=== PATIENT | male | born 1935 | race Caucasian/White ===

== ENCOUNTER 2018-02-18 10:07 | Day surgery (SDC) | payer OTHER, BC ==
[2018-02-12 12:28] VITALS: BMI 36.3
[2018-02-18 11:44] VITALS: TEMP 97.9
[2018-02-18 12:05] VITALS: BP 120/65; PULSE 78
--- NOTE | 2018-02-20 10:11 | PATH ---
Surgical Pathology Report Patient Name: SIDRA DONALD [facility]. Rec. #: [id number] /Age/Gender: 1935 (Age: 82) / M Account: [id number] Location: [facility] Taken: 02/18/2018 Received: 02/18/2018 Reported: 02/20/2018 Physicians: Jess Gilbert M.D. Specimen(s) Received ASCENDING COLON Clinical History History of polyps Postoperative diagnosis: Erythema, rule out colitis Final Diagnosis ASCENDING COLON, BIOPSY: COLONIC MUCOSA WITH SMALL LYMPHOID AGGREGATES, FOCAL VASCULAR CONGESTION, AND MELANOSIS COLI. Electronically Signed Jess Jaramillo M.D. Gross Description Received in formalin, labeled "ascending colon" are 2 de souza, irregular portions of soft tissue averaging 0.3 cm. in greatest dimension. The specimens are submitted in toto in one cassette. /02/19/201802/19/2018
== END 2018-02-18 12:15 | disposition home or self-care (01) ==
LOC: FASU-ENDO 10:07
PROVIDERS: ATTEND Internal Medicine Gastroenterology
PROC: 0DBK8ZX Excision of Ascending Colon, Via Natural or Artificial Opening Endoscopic, Diagnostic (ICD-10-PCS; principal; 2018-02-18 10:57)
DX: Z12.11 Encounter for screening for malignant neoplasm of colon (principal); K63.89 Other specified diseases of intestine; K59.00 Constipation, unspecified; K64.1 Second degree hemorrhoids
CPT/HCPCS: 82962; 88305-TC

== ENCOUNTER 2019-07-21 09:21 | Day surgery (SDC) | payer OTHER, BC ==
[2019-07-15 12:23] VITALS: BMI 35.9
[2019-07-21] MEDS ORDERED: LIDOCAINE HCL/PF 2% SDV 5ML VIAL ONE (10:37)
[2019-07-21] MEDS ORDERED: PROPOFOL 20 ML ONE ×3 (10:37)
[2019-07-21 11:58] VITALS: BP 110/71; PULSE 78; TEMP 98
--- NOTE | 2019-07-26 10:39 | PATH ---
Surgical Pathology Report Patient Name: SIDRA DONALD [facility]. Rec. #: [id number] /Age/Gender: 1935 (Age: 83) / M Account: [id number] Location: [facility] Taken: 07/21/2019 Received: 07/21/2019 Reported: 07/26/2019 Physicians: Jess Gilbert M.D. Specimen(s) Received BX POLYP ASCENDING COLON Clinical History The Screening Postoperative diagnosis: Diverticulosis, colon polyps, hemorrhoids Final Diagnosis ASCENDING COLON, POLYP, BIOPSY: TUBULAR ADENOMA. Electronically Signed Avelina Rogers M.D. Gross Description Received in formalin, labeled "biopsy polyp ascending colon" are 3 de souza, irregular portions of soft tissue ranging from 0.1-0.2 cm. in greatest dimension. The specimens are submitted in toto in one cassette. /07/22/2019 [facility]07/22/2019
== END 2019-07-21 12:14 | disposition home or self-care (01) ==
LOC: FASU-ENDO 09:21
PROVIDERS: ATTEND Internal Medicine Gastroenterology
PROC: 0DBK8ZX Excision of Ascending Colon, Via Natural or Artificial Opening Endoscopic, Diagnostic (ICD-10-PCS; principal; 2019-07-21 10:47)
DX: Z12.11 Encounter for screening for malignant neoplasm of colon (principal); D12.2 Benign neoplasm of ascending colon; K57.30 Diverticulosis of large intestine without perforation or abscess without bleeding; K64.3 Fourth degree hemorrhoids
CPT/HCPCS: 82962; 88305-TC

== ENCOUNTER 2020-08-04 14:08 | Inpatient (IN) | payer OTHER ==
[2020-08-04 16:07] LABS: BASO % 0.9 % (0-2.0); EOS % 1.3 % (0-4.5); HEMATOCRIT 37.4 % (35.4-49); HEMOGLOBIN 12.4 GM/dL (11.7-16.9); MCH 31.2 pg (25.7-33.7); MCHC 33.1 g/dl (32.0-35.9); MEAN CELL VOLUME 94.3 fl (80-96); MEAN PLT VOLUME 8.7 fl (7.5-11.1); MONO % 8.3 % (3.8-10.2); NEUT % 73.5 % (42.8-82.8); PLATELET COUNT 216 K/MM3 (134-434); RBC 3.97 M/mm3 (4.00-5.60); RDW 15.1 % (11.9-15.9); WHITE BLOOD COUNT 6.8 K/mm3 (4.0-10.0)
[2020-08-04 16:42] LABS: CHLORIDE 105 mmol/L (98-107); POTASSIUM 4.5 mmol/L (3.5-5.1); SODIUM 141 mmol/L (136-145)
[2020-08-04 16:44] LABS: CALCIUM 9.4 mg/dL (8.5-10.1)
[2020-08-04 16:45] LABS: ALBUMIN 3.9 g/dl (3.4-5.0); ANION GAP 5 MMOL/L (8-16); BLOOD UREA NITROGEN 11.9 mg/dL (7-18); CO2 30 mmol/L (21-32); GLUCOSE,RANDOM 89 mg/dL (74-106)
[2020-08-04 16:48] LABS: CREATININE 0.9 mg/dL (0.55-1.3); SGOT/AST 13 U/L (15-37); SGPT/ALT 18 U/L (13-61)
[2020-08-04 16:49] LABS: BILIRUBIN,TOTAL 0.4 mg/dL (0.2-1)
[2020-08-04 16:50] LABS: TOT PROT 6.8 g/dl (6.4-8.2)
[2020-08-04 16:51] LABS: ALK PHOS 65 U/L (45-117)
[2020-08-05] MEDS: INSULIN SLIDING SCALE (NOVOLOG) 1 VIAL SQ SCH ×5 (00:07→22:13)
[2020-08-05] MEDS: APIXABAN 5 MG TABLET PO SCH ×2 (00:31→09:41)
[2020-08-05] MEDS: ATORVASTATIN CA 10 MG TABLET (FP) PO SCH (00:31)
[2020-08-05 04:18] VITALS: BMI 35.6
[2020-08-05] MEDS: TAMSULOSIN HCL 0.4 MG CAP PO SCH (08:37)
[2020-08-05 08:50] LABS: BASO % 1.1 % (0-2.0); EOS % 1.4 % (0-4.5); HEMATOCRIT 35.2 % (35.4-49); LYMPH % 16.3 % (8-40); MCH 31.9 pg (25.7-33.7); MCHC 34.1 g/dl (32.0-35.9); MEAN CELL VOLUME 93.3 fl (80-96); MEAN PLT VOLUME 8.5 fl (7.5-11.1); MONO % 9.8 % (3.8-10.2); NEUT % 71.4 % (42.8-82.8); PLATELET COUNT 207 K/MM3 (134-434); RBC 3.77 M/mm3 (4.00-5.60); WHITE BLOOD COUNT 6.4 K/mm3 (4.0-10.0)
[2020-08-05 09:17] LABS: POTASSIUM 3.8 mmol/L (3.5-5.1)
[2020-08-05 09:22] LABS: ALBUMIN 3.6 g/dl (3.4-5.0); BLOOD UREA NITROGEN 10.8 mg/dL (7-18)
[2020-08-05 09:25] LABS: CREATININE 0.7 mg/dL (0.55-1.3)
[2020-08-05 09:26] LABS: BILIRUBIN,TOTAL 0.6 mg/dL (0.2-1); PHOSPHOROUS 4.2 mg/dL (2.5-4.9)
[2020-08-05 09:30] LABS: TOT PROT 6.2 g/dl (6.4-8.2)
[2020-08-05] MEDS ORDERED: PT OWN MED DRAWER 7, Y5N ONE ×2 (09:38→17:42)
[2020-08-05] MEDS: LISINOPRIL 20 MG TABLET PO SCH (09:40)
[2020-08-05] MEDS: HYDROCHLOROTHIAZIDE 25 MG TABLET (FP) PO SCH (09:40)
[2020-08-05] MEDS ORDERED: LORazepam 2 MG/ML SDV VIAL IM ONE ×2 (11:27→16:30)
[2020-08-05] MEDS: CITALOPRAM HYDROBROMIDE 20 MG TABLET PO SCH (12:27)
[2020-08-05] MEDS: LACTULOSE 20 GM/30 ML UDC (FOR ORAL USE ONLY) PO SCH (12:27)
[2020-08-05] MEDS ORDERED: LORazepam 2 MG/ML SDV VIAL IVPUSH PRN (17:07)
[2020-08-06] MEDS: LACTULOSE 20 GM/30 ML UDC (FOR ORAL USE ONLY) PO SCH ×3 (00:17→21:50)
[2020-08-06] MEDS: APIXABAN 5 MG TABLET PO SCH ×3 (00:17→21:50)
[2020-08-06] MEDS: PRIMIDONE 50 MG TABLET PO SCH ×2 (00:18→21:50)
[2020-08-06] MEDS: ATORVASTATIN CA 10 MG TABLET (FP) PO SCH ×2 (00:18→21:50)
[2020-08-06] MEDS: INSULIN SLIDING SCALE (NOVOLOG) 1 VIAL SQ SCH ×4 (07:38→21:54)
[2020-08-06 09:39] LABS: BASO % 0.6 % (0-2.0); EOS % 0.4 % (0-4.5); HEMATOCRIT 37.3 % (35.4-49); HEMOGLOBIN 12.9 GM/dL (11.7-16.9); LYMPH % 8.1 % (8-40); MCH 32.2 pg (25.7-33.7); MCHC 34.5 g/dl (32.0-35.9); MEAN CELL VOLUME 93.2 fl (80-96); MEAN PLT VOLUME 8.5 fl (7.5-11.1); MONO % 5.8 % (3.8-10.2); NEUT % 85.1 % (42.8-82.8); PLATELET COUNT 220 K/MM3 (134-434); RDW 15.3 % (11.9-15.9); WHITE BLOOD COUNT 9.6 K/mm3 (4.0-10.0)
[2020-08-06 09:56] LABS: POTASSIUM 3.7 mmol/L (3.5-5.1)
[2020-08-06] MEDS ORDERED: PT OWN MED DRAWER 7, Y5N ONE ×2 (09:56→21:43)
[2020-08-06 10:01] LABS: CALCIUM 8.9 mg/dL (8.5-10.1)
[2020-08-06 10:02] LABS: ALBUMIN 3.7 g/dl (3.4-5.0); BLOOD UREA NITROGEN 15.4 mg/dL (7-18); CREATININE 0.8 mg/dL (0.55-1.3)
[2020-08-06 10:04] LABS: BILIRUBIN,TOTAL 0.9 mg/dL (0.2-1); TOT PROT 6.5 g/dl (6.4-8.2)
[2020-08-06 10:24] LABS: SYPHILIS W/ RPR CONF NON-REACTIVE (NONREACTIVE)
[2020-08-06] MEDS: TAMSULOSIN HCL 0.4 MG CAP PO SCH (10:25)
[2020-08-06] MEDS: CITALOPRAM HYDROBROMIDE 20 MG TABLET PO SCH (10:25)
[2020-08-06] MEDS: HYDROCHLOROTHIAZIDE 25 MG TABLET (FP) PO SCH (10:25)
[2020-08-06] MEDS: LISINOPRIL 20 MG TABLET PO SCH (10:26)
[2020-08-06 10:52] LABS: HIV INTERPRETATION NEGATIVE (NEGATIVE)
[2020-08-06] MEDS: DEXTROSE 5%-0.45% SALINE 1,000 ML IV SCH (13:16)
[2020-08-06] MEDS ORDERED: ACETAMINOPHEN 1000 MG/100 ML VIAL (NON FORMULARY) IVPB PRN (15:02)
[2020-08-07] MEDS: DEXTROSE 5%-0.45% SALINE 1,000 ML IV SCH (02:03)
[2020-08-07] MEDS ORDERED: PT OWN MED DRAWER 7, Y5N ONE ×5 (02:25→21:49)
[2020-08-07] MEDS: INSULIN SLIDING SCALE (NOVOLOG) 1 VIAL SQ SCH ×4 (06:37→21:46)
[2020-08-07] MEDS: TAMSULOSIN HCL 0.4 MG CAP PO SCH (08:04)
[2020-08-07 09:47] LABS: BASO % 0.7 % (0-2.0); EOS % 0.8 % (0-4.5); HEMATOCRIT 35.6 % (35.4-49); HEMOGLOBIN 12.2 GM/dL (11.7-16.9); LYMPH % 9.5 % (8-40); MCH 32.1 pg (25.7-33.7); MCHC 34.4 g/dl (32.0-35.9); MEAN CELL VOLUME 93.5 fl (80-96); MONO % 6.6 % (3.8-10.2); NEUT % 82.4 % (42.8-82.8); PLATELET COUNT 193 K/MM3 (134-434); RDW 15.3 % (11.9-15.9); WHITE BLOOD COUNT 8.1 K/mm3 (4.0-10.0)
[2020-08-07 10:05] LABS: POTASSIUM 3.6 mmol/L (3.5-5.1)
[2020-08-07 10:10] LABS: ALBUMIN 3.4 g/dl (3.4-5.0); BLOOD UREA NITROGEN 15.5 mg/dL (7-18); CALCIUM 8.2 mg/dL (8.5-10.1)
[2020-08-07 10:13] LABS: CREATININE 0.7 mg/dL (0.55-1.3); PHOSPHOROUS 2.4 mg/dL (2.5-4.9)
[2020-08-07 10:14] LABS: BILIRUBIN,TOTAL 0.9 mg/dL (0.2-1); TOT PROT 6.1 g/dl (6.4-8.2)
[2020-08-07] MEDS ORDERED: POTASSIUM PHOSPHATE 15 MM in SODIUM CHLORIDE 250 ML IVPB ONE (10:21)
[2020-08-07] MEDS: LACTULOSE 20 GM/30 ML UDC (FOR ORAL USE ONLY) PO SCH ×2 (10:32→21:44)
[2020-08-07] MEDS: APIXABAN 5 MG TABLET PO SCH ×2 (10:33→21:43)
[2020-08-07] MEDS: HYDROCHLOROTHIAZIDE 25 MG TABLET (FP) PO SCH (10:33)
[2020-08-07] MEDS: LISINOPRIL 20 MG TABLET PO SCH (10:33)
[2020-08-07] MEDS: CITALOPRAM HYDROBROMIDE 20 MG TABLET PO SCH (10:33)
[2020-08-07] MEDS: CARBIDOPA/LEVODOPA 10/100 TABLET (FP) PO SCH ×2 (12:49→21:43)
[2020-08-07] MEDS: ATORVASTATIN CA 10 MG TABLET (FP) PO SCH (21:43)
[2020-08-08] MEDS: INSULIN SLIDING SCALE (NOVOLOG) 1 VIAL SQ SCH ×4 (06:03→21:47)
[2020-08-08] MEDS: DEXTROSE 5%-0.45% SALINE 1,000 ML IV SCH ×2 (06:50→16:39)
[2020-08-08 08:45] LABS: BASO % 1.3 % (0-2.0); EOS % 3.2 % (0-4.5); HEMATOCRIT 35.3 % (35.4-49); HEMOGLOBIN 12.1 GM/dL (11.7-16.9); LYMPH % 20.3 % (8-40); MCHC 34.3 g/dl (32.0-35.9); MEAN CELL VOLUME 93.5 fl (80-96); MEAN PLT VOLUME 8.5 fl (7.5-11.1); MONO % 9.8 % (3.8-10.2); NEUT % 65.4 % (42.8-82.8); PLATELET COUNT 202 K/MM3 (134-434); RBC 3.78 M/mm3 (4.00-5.60); RDW 14.7 % (11.9-15.9); WHITE BLOOD COUNT 6.4 K/mm3 (4.0-10.0)
[2020-08-08 09:08] LABS: POTASSIUM 3.4 mmol/L (3.5-5.1)
[2020-08-08 09:20] LABS: CALCIUM 8.6 mg/dL (8.5-10.1)
[2020-08-08 09:21] LABS: ALBUMIN 3.1 g/dl (3.4-5.0); BLOOD UREA NITROGEN 17.4 mg/dL (7-18); MAGNESIUM 2.3 mg/dL (1.8-2.4)
[2020-08-08] MEDS ORDERED: PT OWN MED DRAWER 7, Y5N ONE ×2 (09:23→21:32)
[2020-08-08 09:25] LABS: BILIRUBIN,TOTAL 0.6 mg/dL (0.2-1); CREATININE 0.6 mg/dL (0.55-1.3); PHOSPHOROUS 3.4 mg/dL (2.5-4.9)
[2020-08-08] MEDS: CITALOPRAM HYDROBROMIDE 20 MG TABLET PO SCH (09:51)
[2020-08-08] MEDS: HYDROCHLOROTHIAZIDE 25 MG TABLET (FP) PO SCH (09:51)
[2020-08-08] MEDS: TAMSULOSIN HCL 0.4 MG CAP PO SCH (09:51)
[2020-08-08] MEDS: APIXABAN 5 MG TABLET PO SCH ×2 (09:51→21:47)
[2020-08-08] MEDS: LACTULOSE 20 GM/30 ML UDC (FOR ORAL USE ONLY) PO SCH ×2 (09:51→21:47)
[2020-08-08] MEDS: LISINOPRIL 20 MG TABLET PO SCH (09:51)
[2020-08-08] MEDS: CARBIDOPA/LEVODOPA 10/100 TABLET (FP) PO SCH ×2 (09:52→21:46)
[2020-08-08] MEDS: ATORVASTATIN CA 10 MG TABLET (FP) PO SCH (21:47)
[2020-08-09] MEDS: INSULIN SLIDING SCALE (NOVOLOG) 1 VIAL SQ SCH ×3 (06:35→17:07)
[2020-08-09] MEDS: DEXTROSE 5%-0.45% SALINE 1,000 ML IV SCH (07:02)
[2020-08-09] MEDS ORDERED: LORazepam 2 MG/ML SDV VIAL ONE (07:55)
[2020-08-09] MEDS ORDERED: LORazepam 2 MG/ML SDV VIAL IVPUSH ONE (08:00)
[2020-08-09] MEDS ORDERED: PT OWN MED DRAWER 7, Y5N ONE (10:40)
[2020-08-09] MEDS: TAMSULOSIN HCL 0.4 MG CAP PO SCH (11:15)
[2020-08-09] MEDS: LISINOPRIL 20 MG TABLET PO SCH (11:15)
[2020-08-09] MEDS: LACTULOSE 20 GM/30 ML UDC (FOR ORAL USE ONLY) PO SCH (11:15)
[2020-08-09] MEDS: CITALOPRAM HYDROBROMIDE 20 MG TABLET PO SCH (11:15)
[2020-08-09] MEDS: APIXABAN 5 MG TABLET PO SCH (11:16)
[2020-08-09] MEDS: HYDROCHLOROTHIAZIDE 25 MG TABLET (FP) PO SCH (11:16)
[2020-08-09] MEDS: CARBIDOPA/LEVODOPA 10/100 TABLET (FP) PO SCH (11:16)
[2020-08-09 12:23] LABS: BASO % 1.1 % (0-2.0); EOS % 2.8 % (0-4.5); HEMATOCRIT 37.2 % (35.4-49); HEMOGLOBIN 12.6 GM/dL (11.7-16.9); LYMPH % 11.9 % (8-40); MCH 31.8 pg (25.7-33.7); MCHC 33.9 g/dl (32.0-35.9); MEAN CELL VOLUME 93.9 fl (80-96); MEAN PLT VOLUME 8.7 fl (7.5-11.1); MONO % 6.9 % (3.8-10.2); NEUT % 77.3 % (42.8-82.8); PLATELET COUNT 235 K/MM3 (134-434); RBC 3.96 M/mm3 (4.00-5.60); RDW 15.3 % (11.9-15.9); WHITE BLOOD COUNT 7.1 K/mm3 (4.0-10.0)
[2020-08-09 12:56] LABS: POTASSIUM 3.7 mmol/L (3.5-5.1)
[2020-08-09 13:02] LABS: ALBUMIN 3.4 g/dl (3.4-5.0); BLOOD UREA NITROGEN 12.3 mg/dL (7-18); CALCIUM 8.9 mg/dL (8.5-10.1)
[2020-08-09 13:03] LABS: MAGNESIUM 2.3 mg/dL (1.8-2.4)
[2020-08-09 13:05] LABS: PHOSPHOROUS 3.3 mg/dL (2.5-4.9)
[2020-08-09 13:06] LABS: BILIRUBIN,TOTAL 0.4 mg/dL (0.2-1); CREATININE 0.6 mg/dL (0.55-1.3)
[2020-08-09 13:07] LABS: TOT PROT 6.4 g/dl (6.4-8.2)
[2020-08-09 15:04] VITALS: BP 154/97; PULSE 56; TEMP 97.8
== END 2020-08-09 18:34 | DRG 57 ==
LOC: JER 14:08 → JERBED 17:21 → J6S 22:01
PROVIDERS: ADMIT Internal Medicine; ATTEND Internal Medicine
DX: G31.83 Neurocognitive disorder with Lewy bodies (principal); R44.3 Hallucinations, unspecified; I48.91 Unspecified atrial fibrillation; N40.0 Benign prostatic hyperplasia without lower urinary tract symptoms; E11.9 Type 2 diabetes mellitus without complications; I10 Essential (primary) hypertension; E78.5 Hyperlipidemia, unspecified
CPT/HCPCS: 36415; 70450-TC; 70553-TC; 71045-TC-FY; 80053; 82550; 82607; 82746; 82962; 83735; 84100; 84443; 84484; 85025; 86618; 86780; 87040; 87389; 87804; 93005; 93010; 97116-GP; 97162-GP; 99285-25; C9803; J0131; U0003

== ENCOUNTER 2020-11-30 11:46 | Emergency (ER) | payer OTHER, BC ==
[2020-11-30 11:54] VITALS: TEMP 98.7; BMI 35.9
[2020-11-30 13:10] LABS: BASO % 1.3 % (0-2.0); EOS % 1.3 % (0-4.5); HEMATOCRIT 38.5 % (35.4-49); HEMOGLOBIN 13.1 GM/dL (11.7-16.9); LYMPH % 16.9 % (8-40); MCH 31.7 pg (25.7-33.7); MCHC 34.1 g/dl (32.0-35.9); MEAN PLT VOLUME 7.3 fl (7.5-11.1); MONO % 9.2 % (3.8-10.2); NEUT % 71.3 % (42.8-82.8); PLATELET COUNT 284 10^3/uL (134-434); RBC 4.14 M/mm3 (4.00-5.60); RDW 14.7 % (11.9-15.9); WHITE BLOOD COUNT 8.6 K/mm3 (4.0-10.0)
[2020-11-30 13:30] LABS: ALBUMIN 3.8 g/dl (3.4-5.0); BLOOD UREA NITROGEN 15.9 mg/dL (7-18); CALCIUM 8.6 mg/dL (8.5-10.1); PROTHROMBIN TIME (PATIENT) 104.2 SEC (9.7-13.0)
[2020-11-30 13:31] LABS: INR 9.03 (0.83-1.09)
[2020-11-30 13:33] LABS: CREATININE 0.8 mg/dL (0.55-1.3)
[2020-11-30 13:35] LABS: BILIRUBIN,TOTAL 0.3 mg/dL (0.2-1)
[2020-11-30] MEDS ORDERED: PHYTONADIONE 5 MG TABLET PO ONE (14:04)
[2020-11-30] MEDS ORDERED: PHYTONADIONE 5 MG TABLET ONE (14:09)
[2020-11-30 14:42] VITALS: BP 134/82; PULSE 86
== END 2020-11-30 14:54 | disposition home or self-care (01) ==
LOC: JER 11:46
DX: R79.1 Abnormal coagulation profile (principal); I48.91 Unspecified atrial fibrillation
CPT/HCPCS: 36415; 80053; 85025; 85610; 99283-25

== ENCOUNTER 2020-12-01 07:52 | Emergency (ER) | payer OTHER, BC ==
[2020-12-01 08:04] VITALS: BP 121/74; PULSE 80; TEMP 97.3; BMI 35.9
[2020-12-01 08:40] LABS: INR 3.41 (0.83-1.09); PROTHROMBIN TIME (PATIENT) 40.5 SEC (9.7-13.0)
== END 2020-12-01 09:41 | disposition home or self-care (01) ==
LOC: JER 07:52
DX: D68.8 Other specified coagulation defects (principal); I48.91 Unspecified atrial fibrillation
CPT/HCPCS: 36415; 85610; 99283-25